=== PATIENT | male | born 1950 | race Caucasian/White ===

== ENCOUNTER → 2020-11-05 10:34 | Outpatient (REF) | payer MEDICARE, BC, SELFPAY | LOC: ANHLAB 10:34 | PROVIDERS: Visit Provider Nurse Practitioner | DX: C44.329 Squamous cell carcinoma of skin of other parts of face (principal) | CPT/HCPCS: 88305; 88331 ==

== ENCOUNTER → 2021-01-14 09:08 | Outpatient (REF) | payer MEDICARE, BC, SELFPAY | LOC: ANHLAB 09:08 | PROVIDERS: Visit Provider Nurse Practitioner | DX: C44.329 Squamous cell carcinoma of skin of other parts of face (principal) | CPT/HCPCS: 88305; 88331 ==

== ENCOUNTER 2022-05-26 13:54 | Outpatient (NON) | payer MEDICARE, BC, SELFPAY | END 2022-05-26 13:55 | disposition home or self-care (01) | LOC: ANHLAB 13:54 | PROVIDERS: Visit Provider Nurse Practitioner | DX: C44.311 Basal cell carcinoma of skin of nose (principal) | CPT/HCPCS: 88305; 88331 ==

== ENCOUNTER 2022-07-21 14:25 | Outpatient (NON) | payer MEDICARE, BC, SELFPAY | END 2022-07-21 14:26 | disposition home or self-care (01) | LOC: ANHLAB 14:25 | PROVIDERS: Visit Provider Nurse Practitioner | DX: C44.629 Squamous cell carcinoma of skin of left upper limb, including shoulder (principal) | CPT/HCPCS: 88305; 88331 ==

== ENCOUNTER 2023-02-23 06:41 | Outpatient (NON) | payer MEDICARE, BC, SELFPAY | END 2023-02-23 06:42 | disposition home or self-care (01) | PROVIDERS: Visit Provider Nurse Practitioner | DX: C44.229 Squamous cell carcinoma of skin of left ear and external auricular canal (principal) | CPT/HCPCS: 88305; 88331 ==